=== PATIENT | male | born 1975 | race African-American/Black ===

== ENCOUNTER 2018-08-14 18:19 | Emergency (ER) | payer SELFPAY ==
[2018-08-14 18:37] VITALS: BP 154/102
[2018-08-14] MEDS ORDERED: BOOSTRIX IM ONE (19:42)
[2018-08-14] MEDS ORDERED: NORCO 5/325 PO ONE (19:42)
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
== END 2018-08-14 21:18 ==
LOC: ED 18:19
DX: S01.112A Laceration without foreign body of left eyelid and periocular area, initial encounter (principal); R51 Headache; M54.2 Cervicalgia; Y08.89XA Assault by other specified means, initial encounter; Y93.89 Activity, other specified; Y92.89 Other specified places as the place of occurrence of the external cause; Y99.8 Other external cause status
CPT/HCPCS: 70450; 70486; 72125; 90471; 90715